=== PATIENT | female | born 1955 | race Caucasian/White ===

== ENCOUNTER → 2019-11-27 | Outpatient (CLI) | payer OTHER ==
[~2019-11-27] MED LIST: LEVAQUIN 500 M500 MG PO; PREDNISONE 20 M20 M1 PO; VENTOLIN HFA 1818 GM INH
== END ==
LOC: LAB 10:28
PROVIDERS: ATTEND Nurse Practitioner
DX: U07.1 COVID-19 (principal)

== ENCOUNTER → 2019-12-04 | Outpatient (CLI) | payer OTHER | LOC: LAB 08:00 | PROVIDERS: ATTEND Nurse Practitioner | DX: U07.1 COVID-19 (principal) ==